=== PATIENT | female | born 2005 | race Caucasian/White ===

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

== ENCOUNTER 2023-02-23 07:39 | Emergency (ER) | payer OTHER, SELFPAY ==
[2023-02-23 07:59] VITALS: BP 110/70; PULSE 80; RESP 16; TEMP 36.7; O2SAT 98; BMI 38.0
--- NOTE | 2023-02-23 08:09 | CTR_ITS ---
PROCEDURE INFORMATION: Exam: CT Abdomen And Pelvis Without Contrast Exam date and time: 02/23/2023 10:25 AM Age: 17 years old Clinical indication: Abdominal pain; Flank; Left; Additional info: Left flank pain TECHNIQUE: Imaging protocol: Computed tomography of the abdomen and pelvis without contrast. Radiation optimization: All CT scans at this facility use at least one of these dose optimization techniques: automated exposure control; mA and/or kV adjustment per patient size (includes targeted exams where dose is matched to clinical indication); or iterative reconstruction. REPORTING DATA: Count of CT and Cardiac NM exams in prior 12 months: This patient has received 0 known CTs and 0 known cardiac nuclear medicine studies in the 12 months prior to the current study. COMPARISON: US pelvic complete* [id number] 12/13/2022 4:06 PM RADIATION DOSE METRICS: Total DLP (mGy-cm): 965.27 FINDINGS: Lungs: Lung bases are clear. Liver: The liver is normal. Gallbladder and bile ducts: The gallbladder is normal. There is no biliary dilation. Pancreas: The pancreas is unremarkable. Spleen: The spleen is unremarkable. Adrenal glands: The adrenal glands are unremarkable. Kidneys and ureters: Mild left hydronephrosis. Normal caliber left ureter. Mild left proximal periureteral fat stranding. There are no intrarenal stones on the left. There is a nonobstructive 2 mm stone in the right kidney. There is no hydronephrosis or ureteral dilation on the right. Stomach and bowel: The stomach is decompressed, preventing meaningful evaluation of wall thickness. The small bowel is nondilated. The colon is unremarkable. Appendix: The appendix is normal. Intraperitoneal space: There is no free air or significant intraperitoneal free fluid. Vasculature: The aorta is unremarkable. There is no aneurysm. Lymph nodes: There is no lymphadenopathy in the retroperitoneum, mesentery, pelvis or inguinal regions. Urinary bladder: 3 mm stone is visible in the bladder along the dependent wall near the left ureterovesical junction. The bladder is nondistended. The wall is thin. Reproductive: The uterus and left adnexa are unremarkable. There is a 5.6 x 5.3 cm simple right adnexal cyst. Bones/joints: Bones are unremarkable. Soft tissues: The abdominal wall is intact. CT/CT kidney stone [id number] IMPRESSION: 1. 3 mm stone in the urinary bladder near the left ureterovesical junction may be in the wall or lumen. There is mild left hydronephrosis and proximal periureteral fat stranding suggesting recent passage of the stone through the ureter. 2. 2 mm nonobstructive stone in the right kidney. 3. 5.6 cm simple right adnexal cyst. Findings correspond to a 4.4 cm cyst visible on ultrasound of 12/13/2022. Ultrasound follow-up in 6-12 months is recommended. (Reference: Jerome) REFERENCES: Jerome et al. Management of Incidental Adnexal Findings on CT and MRI: A White Paper of the ACR Incidental Findings Committee, J Am Joel Radiol. 2019;17(2):248-254.
--- NOTE | 2023-02-23 08:11 | ED_ITS ---
HPI - Back Pain/Injury 2 General: Chief Complaint: Back Pain/Injury Stated Complaint: N/V, Left side abd/back pain Time Seen by Provider: 02/23/23 07:43 Source: patient Mode of arrival: ambulatory Limitations: no limitations History of Present Illness: 17-year-old female states that she woke up this morning with a severe pain in her left flank radiated to her left abdomen states pain sharp in nature rates it a 7 out of 10 she had nausea and vomiting states she has had no fevers denies any dysuria she denies any worsening improving factors. Associated symptoms: Reports abdominal pain, nausea and vomiting; Deny chills, dysuria or fever(s) Review of Systems 2 Const: Denies: fever(s), chills, body aches or change in appetite ENMT: Denies: throat pain or dental pain Card: Denies: chest pain Resp: Denies: dyspnea GI: Reports: abdominal pain, nausea and vomiting; Denies: diarrhea : Reports: flank pain; Denies: dysuria Musc: Reports: back pain; Denies: neck pain Skin/Breast: Denies: rash Neuro: Denies: headache(s) PFSH ED 2 PFSH: Medical History No pertinent family history No pertinent past medical history Family History Grandmother Cancer pancreatic cancer Denies family history of Diabetes Hypertension Stroke Social History Smoking and tobacco/nicotine status: never used tobacco/nicotine Second hand smoke exposure: No Physical Exam 2 Const: COMMON NORMALS: no acute distress, patient oriented x3 and healthy appearing HENMT: COMMON NORMALS: normocephalic and atraumatic HEAD & SCALP: n ormocephalic and atraumatic Neck/C-Spine: COMMON NORMALS: full ROM and supple Chest: COMMONS NORMALS: normal inspection of the chest Resp: COMMON NORMALS: normal respiratory effort, No retractions, No use of accessory muscles and clear to auscultation bilaterally AUSCULTATION: clear to auscultation bilaterally Cardio: COMMON NORMALS: regular rate, regular rhythm and No murmurs present (Cardio) RATE: regular rate RHYTHM: regular rhythm GI: COMMON NORMALS: Normal to inspection, nondistended, normoactive bowel sounds present, Soft to palpation, non-tender and no masses PALPATION: Yes Soft to palpation Extremity: COMMON NORMALS: normal to inspection and full ROM Neuro: COMMON NORMALS: patient oriented x3, moves all extremities and no focal motor deficits Psych: COMMON NORMALS: mental status grossly normal, Normal thought process present and cooperative THOUGHT PROCESS: Normal thought process present Skin: COMMON NORMALS: no rashes or lesions noted and no wounds GENERAL SKIN EXAM: no rashes or lesions noted Course 2 Vital Signs: Vital signs: Vital Signs Temperature 98.1 F 02/23/23 07:59 Pulse Rate 80 02/23/23 07:59 Respiratory Rate 17 02/23/23 09:20 Blood Pressure 110/70 02/23/23 07:59 Pulse Oximetry 97 02/23/23 09:20 Oxygen Delivery Me thod Room Air 02/23/23 07:59 MDM - Back Pain/Injury Medical Decision Making Patient presents for left flank pain is likely from a kidney stone CT showed kidney stones passed in the bladder she has a slight infection as well we will start her on Keflex her pain is resolved here she is stable for discharge she is follow-up with PCP and return if worsening. Medical Records I reviewed the patient's medical records. Labs I reviewed the patient's lab results. 02/23/23 08:25 02/23/23 08:25 Radiology Impressions Abdomen/Pelvis CT 02/23/23 08:09 IMPRESSION: 1. 3 mm stone in the urinary bladder near the left ureterovesical junction may be in the wall or lumen. There is mild left hydronephrosis and proximal periureteral fat stranding suggesting recent passage of the stone through the ureter. 2. 2 mm nonobstructive stone in the right kidney. 3. 5.6 cm simple right adnexal cyst. Findings correspond to a 4.4 cm cyst visible on ultrasound of 12/13/2022. Ultrasound follow-up in 6-12 months is recommended. (Reference: Jerome) REFERENCES: Jerome et al. Management of Incidental Adnexal Findings on CT and MRI: A White Paper of the ACR Incidental Findings Committee, J Am Joel Radiol. 2019;17(2):248-254. Laboratory Results WBC 11.76 10^3/uL (4.5-13.0) 02/23/23 08:25 RBC 4.98 10^6/uL (3.85-5.65) 02/23/23 08:25 Hgb 14.10 g/dL (12.4-14.8) 02/23/23 08:25 Hct 43.9 % (36-47) 02/23/23 08:25 MCV 88.2 fl (85-98) 02/23/23 08:25 MCH 28.3 pg (27-33) 02/23/23 08:25 MCHC 32.1 g/dL (30-55) 02/23/23 08:25 RDW 13.3 % (12.1-15.1) 02/23/23 08:25 Plt Count 310 10^3/cmm (157-399) 02/23/23 08:25 MPV 11.0 fL (7.4-10.4) H 02/23/23 08:25 Neut % (Auto) 54.5 % 02/23/23 08:25 Lymph % (Auto) 30.9 % 02/23/23 08:25 Burke % (Auto) 6.3 % 02/23/23 08:25 Eos % (Auto) 7.0 % 02/23/23 08:25 Baso % (Auto) 1.0 % 02/23/23 08:25 Neut # (Auto) 6.41 10^3/uL (1.8-8.0) 02/23/23 08:25 Lymph # (Auto) 3.6 10^3/uL (1.5-6.5) 02/23/23 08:25 Burke # (Auto) 0.7 10^3/uL (0.2-0.9) 02/23/23 08:25 Eos # (Auto) 0.8 10^3/uL (0.0-0.8) 02/23/23 08:25 Baso # (Auto) 0.1 10^3/uL (0.0-0.1) 02/23/23 08:25 Nucleated RBC % (auto) 0 % 02/23/23 08:25 Nucleated RBCs # 0.0 /100WBC 02/23/23 08:25 Sodium 142 mmol/L (136-145) 02/23/23 08:25 Potassium 4.0 mmol/L (3.5-5.1) 02/23/23 08:25 Chloride 106 mmol/L (98-107) 02/23/23 08:25 Carbon Dioxide 24 mmol/L (22-29) 02/23/23 08:25 Anion Gap 16.0 (5-19) 02/23/23 08:25 BUN 11 mg/dL (6-20) 02/23/23 08:25 Creatinine 0.8 mg/dL (0.5-0.9) 02/23/23 08:25 GFR Calculation 92.4 mL/min (90-130) 02/23/23 08:25 Glucose 109 mg/dL (65-115) 02/23/23 08:25 Calculated Osmolality 294 mOsm/kg (285-295) 02/23/23 08:25 Calcium 9.9 mg/dL (8.5-10.5) 02/23/23 08:25 Total Bilirubin 0.2 mg/dL (0.15-1.2) 02/23/23 08:25 AST 17 U/L (0-32) 02/23/23 08:25 ALT 17 U/L (0-33) 02/23/23 08:25 Alkaline Phosphatase 115 U/L (35-105) H 02/23/23 08:25 Total Protein 7.5 g/dL (6.6-8.7) 02/23/23 08:25 Albumin 4.6 g/dL (3.5-5.2) 02/23/23 08:25 Globulin 2.9 g/dL (1.3-4.6) 02/23/23 08:25 Lipase 25 U/L (13-60) 02/23/23 08:25 HCG, Qual Negative (Negative) 02/23/23 08:25 Urine Color Dark yellow (Yellow) 02/23/23 09:54 Urine Appearance Cloudy (CLEAR) A 02/23/23 09:54 Urine pH 5 (5-7) 02/23/23 09:54 Ur Specific Randolph 1.030 (1.005-1.030) 02/23/23 09:54 Urine Protein 1+ (Negative) H 02/23/23 09:54 Urine Glucose (UA) Norm (Normal) 02/23/23 09:54 Urine Ketones Negative (Negative) 02/23/23 09:54 Urine Blood 3+ (Negative) H 02/23/23 09:54 Urine Nitrate Negative (Negative) 02/23/23 09:54 Urine Bilirubin 1+ (Negative) H 02/23/23 09:54 Urine Urobilinogen Norm mg/dL (Negative) 02/23/23 09:54 Ur Leukocyte Esterase 2+ (Negative) H 02/23/23 09:54 Urine RBC 25-40 /hpf (0-2) H 02/23/23 09:54 Urine WBC 10-15 /hpf (0-5) H 02/23/23 09:54 Ur Squamous Epith Cells 15-25 /hpf (0-5) H 02/23/23 09:54 Calcium Oxalate Crystal 0-4 /hpf H 02/23/23 09:54 Amorphous Sediment Not Reportable 02/23/23 09:54 Urine Bacteria 2+ /hpf (NONE) H 02/23/23 09:54 All radiology interpretation(s) finalized by discharge Discharge Plan Discharge Patient Disposition: Home Clinical Impression: Acute cystitis Qualifiers: Hematuria presence: without hematuria Qualified Code(s): N30.00 - Acute cystitis without hematuria Condition: Stable Prescriptions: New cephalexin 500 mg capsule 500 mg PO TID 7 Days Qty: 21 0RF ondansetron 4 mg tablet,disintegrating 4 mg PO Q6H PRN (Reason: nausea and vomiting) Qty: 14 0RF naproxen [Naprosyn] 500 mg tablet 500 mg PO BID PRN (Reason: pain) Qty: 20 0RF No Action propranolol 20 mg tablet See Rx Instructions .ROUTE .COMPLEX Rx Instructions: 40mg po qam and 20mg po bedtime lorazepam 0.5 mg tablet 0.5 mg PO DAILY PRN (Reason: Anxiety) ondansetron 4 mg tablet,disintegrating 4 mg PO TID PRN (Reason: Nausea And Vomiting) Aimovig Autoinjector 140 mg/mL auto-injector 140 mg SUBCUT Q30D levetiracetam 750 mg tablet 750 mg PO BID mirtazapine 30 mg Tablet 30 mg PO BEDTIME Discharge Orders: Discharge ED (Routine); Ordered 02/23/23 Ordered By: Stevo Monroy Referrals: Ajay Dickinson, [Primary Care Provider] - 1-3 days Discharge Diet: Advance as tolerated Discharge Activity: Resume usual activity Patient Instructions: Kidney Stones (ED) Coding Level of Care Code ED Dental Hygienist for Moshe Jesus
[2023-02-23] MEDS: ondansetron 2 mg/ML SDV 2 mL 4 MG IVP (08:31)
[2023-02-23] MEDS: sodium chloride 0.9% 1,000 ML 999 ML IV (08:31)
[2023-02-23 08:35] VITALS: RESP 20; O2SAT 98
[2023-02-23] MEDS: morphine 4 mg/mL SDV 1 mL IVP (08:35)
[2023-02-23 08:41] LABS: Basophils # 0.1 10^3/uL (0.0-0.1); Eosinophils # 0.8 10^3/uL (0.0-0.8); Hematocrit 43.9 % (36-47); Lymphocytes # 3.6 10^3/uL (1.5-6.5); Lymphocytes % 30.9 %; Mean Corpuscular HGB Conc 32.1 g/dL (30-55); Mean Corpuscular Hemoglobin 28.3 pg (27-33); Mean Corpuscular Volume 88.2 fl (85-98); Monocytes # 0.7 10^3/uL (0.2-0.9); Monocytes % 6.3 %; Neutrophils # 6.41 10^3/uL (1.8-8.0); Neutrophils % 54.5 %; Nucleated Red Blood Cells % 0 %; Platelet Count 310 10^3/cmm (157-399); Red Blood Count 4.98 10^6/uL (3.85-5.65); Red Cell Distribution Width 13.3 % (12.1-15.1); White Blood Count 11.76 10^3/uL (4.5-13.0)
[2023-02-23 09:20] VITALS: RESP 17; O2SAT 97
[2023-02-23] MEDS: HYDROmorphone 1 mg/mL INJ 1 mL IVP (09:20)
[2023-02-23 09:25] LABS: Alanine Aminotransferase 17 U/L (0-33); Albumin Level 4.6 g/dL (3.5-5.2); Alkaline Phosphatase 115 U/L (35-105); Aspartate Amino Transferase 17 U/L (0-32); Blood Urea Nitrogen 11 mg/dL (6-20); Calcium 9.9 mg/dL (8.5-10.5); Carbon Dioxide 24 mmol/L (22-29); Chloride 106 mmol/L (98-107); Creatinine Clr Calc Pharmacy 125.7927; Globulin 2.9 g/dL (1.3-4.6); Glomerular Filtration Rate 92.4 mL/min (90-130); Glucose 109 mg/dL (65-115); Lipase 25 U/L (13-60); Osmolality Calculated 294 mOsm/kg (285-295); Sodium 142 mmol/L (136-145); Total Bilirubin 0.2 mg/dL (0.15-1.2); Total Protein 7.5 g/dL (6.6-8.7)
[2023-02-23 10:23] LABS: HCG, Serum Qual Negative (Negative)
[2023-02-23 11:27] LABS: Add Urine Culture? No; Add Urine Microscopic? YES; Bacteria Urine 2+ /hpf; Bilirubin Urine 1+ (Negative); Blood Urine 3+ (Negative); Calcium Oxalate Crystals Urine 0-4 /hpf; Glucose Urine UA Norm (Normal); Ketones Urine Negative (Negative); Leukocyte Esterase Urine 2+ (Negative); Nitrate Urine Negative (Negative); Protein Urine 1+ (Negative); RBC Urine 25-40 /hpf (0-2); Squamous Epithelial Cell Urine 15-25 /hpf (0-5); Urine Appearance Cloudy (CLEAR); Urine Color Dark Yellow (Yellow); Urobilinogen Urine Norm (Negative); pH Urine 5 (5-7)
== END 2023-02-23 11:42 | disposition home or self-care (01) ==
PROVIDERS: Emergency Provider Emergency Medicine; PCP Electrodiagnostic Medicine
DX: N30.00 Acute cystitis without hematuria (principal); N13.2 Hydronephrosis with renal and ureteral calculous obstruction
CPT/HCPCS: 74176; 80053; 81001; 83690; 84703; 85025; 96361; 96374; 96375; 99285; J1170; J2270; J2405; J7030

== ENCOUNTER → 2023-10-30 11:04 | Outpatient (BNVA) | payer OTHER, SELFPAY | PROVIDERS: PCP Electrodiagnostic Medicine; Visit Provider Nurse Practitioner Women's Health | DX: N92.6 Irregular menstruation, unspecified (principal) | CPT/HCPCS: 82465; 83036; 83718; 83721; 84402; 84403; 84439; 84443; 84481 ==

== ENCOUNTER → 2023-12-30 12:17 | Outpatient (BNVA) | payer OTHER, SELFPAY | PROVIDERS: PCP Electrodiagnostic Medicine; Visit Provider Nurse Practitioner Women's Health | DX: N92.6 Irregular menstruation, unspecified (principal); N83.291 Other ovarian cyst, right side | CPT/HCPCS: 76830 ==

== ENCOUNTER 2024-01-11 23:07 | Emergency (ER) | payer OTHER, SELFPAY ==
[2024-01-11 23:11] VITALS: BP 157/73; PULSE 136; RESP 18; TEMP 37.2; O2SAT 97; BMI 40.7
[2024-01-11 23:14] VITALS: BP 125/76; PULSE 91; O2SAT 99
--- NOTE | 2024-01-11 23:51 | ED_ITS ---
HPI - Seizure 2 General: Chief Complaint: Seizure Stated Complaint: stated seizing since 920 pm Time Seen by Provider: 01/11/24 23:49 History of Present Illness: HPI Narrative: 18-year-old female with a history of pse udoseizure and migraine headache. She had a headache last evening, and began to have seizures. Her significant other in the room states that she has had seizure like activity on and off since around 9 PM. She has had multiple episodes. She is on Depakote, but has not taken her dose tonight. When trying to interview the patient, her eyes rolled back in her head, and she shakes she answers some questions by shaking her head yes and no. Seizure History: Yes (has prescription of Trazadone) Related Data Home Medications Medication Instructions Recorded Confirmed propranolol 20 mg tablet See Rx Instructions .Route .COMPLEX 05/24/22 12/19/23 lorazepam 0.5 mg tablet 0.5 mg PO DAILY PRN Anxiety 09/25/22 12/19/23 erenumab-aooe 140 mg/mL 140 mg SUBCUT Q30D 12/27/22 12/19/23 subcutaneous auto-injector (Aimovig Autoinjector) mirtazapine 30 mg tablet 30 mg PO BEDTIME 02/23/23 12/19/23 divalproex 500 mg tablet,extended 500 mg PO DAILY 10/30/23 12/19/23 release 24 hr (Depakote ER) hydrochlorothiazide 25 mg tablet 25 mg PO DAILY 10/30/23 12/19/23 ondansetron 4 mg disintegrating 8 mg PO Q6H PRN nausea and vomiting 10/30/23 12/19/23 tablet Previous Rx's Medication Instructions Recorded drospirenone 3 mg-ethinyl 1 tab PO DAILY #28 tabs 12/26/23 estradiol 0.02 mg tablet (WILEY (28)) Allergies Allergy/AdvReac Type Severity Reaction Status Date / Time amoxicillin Allergy hives Verified 12/19/23 09:47 ciprofloxacin Allergy RASH Verified 12/19/23 09:47 ketorolac [From Toradol] Allergy ALGY-Rash Verified 12/19/23 09:47 PFSH ED 2 PFSH: Medical History Hypertension No pertinent past medical history No pertinent family history Family History Grandmother Cancer pancreatic cancer Ovarian cancer Denies family history of Colon cancer Prostate cancer Diabetes Heart disease Hyperlipidemia Breast cancer Hypertension Uterine cancer Thyroid disease Stroke Social History Smoking and tobacco/nicotine status: current every day tobacco/nicotine user (vape use) Second hand smoke exposure: No Physical Exam 2 Const: COMMON NORMALS: alert GENERAL APPEARANCE: cooperative and anxious; not ill appearing ORIENTATION/CONSCIOUSNESS: Yes awake HENMT: COMMON NORMALS: normocephalic HEAD & SCALP: normocephalic FACE & SINUS: normal facial exam Eye: COMMON NORMALS: Equal, round and reactive pupils present and EOMs intact bilaterally PUPIL: Yes Equal, round and reactive pupils present Chest: CHEST: Yes Symmetrical chest wall rise Resp: COMMON NORMALS: normal respiratory effort, No use of accessory muscles and clear to auscultation bilaterally AUSCULTATION: clear to auscultation bilaterally Cardio: COMMON NORMALS: regular rate and regular rhythm RATE: regular rate RHYTHM: regular rhythm Neuro: SENSORIUM/ORIENTATION: Yes alert Course 2 Vital Signs: Vital signs: Vital Signs Temperature 98.9 F 01/11/24 23:11 Pulse Rate 106 H 01/12/24 02:17 Respiratory Rate 16 01/12/24 01:30 CS T Blood Pressure 114/79 01/12/24 02:17 Pulse Oximetry 99 01/12/24 02:17 Oxygen Delivery Me thod Room Air 01/12/24 01:30 CS T MDM - Seizure MDM Narrative Medical decision making narrative: The patient was given Ativan, as well as IV haloperidol and IV Depacon for her migraine with pseudoseizure. Seizures completely abated, and the patient rested comfortably, at least until she was awoken and informed that she would be discharged. She then started to shiver again. Her white blood cell count is 15. Her other laboratory is completely normal including CK level, phosphorus and magnesium. Her ethanol level is less than 10. She has walked to the emergency department, she will be allowed discharge. Lab Data 01/12/24 00:30 01/12/24 00:30 Labs: Laboratory Results WBC 14.83 10^3/uL (4.5-13.0) H 01/12/24 00:30 RBC 4.67 10^6/uL (3.85-5.65) 01/12/24 00:30 Hgb 13.70 g/dL (12.4-14.8) 01/12/24 00:30 Hct 41.8 % (36-47) 01/12/24 00:30 MCV 89.5 fl (85-98) 01/12/24 00:30 MCH 29.3 pg (27-33) 01/12/24 00:30 MCHC 32.8 g/dL (30-55) 01/12/24 00:30 RDW 12.8 % (12.1-15.1) 01/12/24 00:30 Plt Count 292 10^3/cmm (157-399) 01/12/24 00:30 MPV 11.0 fL (7.4-10.4) H 01/12/24 00:30 Neut % (Auto) 40.1 % 01/12/24 00:30 Lymph % (Auto) 47.9 % 01/12/24 00:30 Shelby % (Auto) 7.0 % 01/12/24 00:30 Eos % (Auto) 3.4 % 01/12/24 00:30 Baso % (Auto) 0.7 % 01/12/24 00:30 Neut # (Auto) 5.93 10^3/uL (1.8-8.0) 01/12/24 00:30 Lymph # (Auto) 7.1 10^3/uL (1.5-6.5) H 01/12/24 00:30 Shelby # (Auto) 1.0 10^3/uL (0.2-0.9) H 01/12/24 00:30 Eos # (Auto) 0.5 10^3/uL (0.0-0.8) 01/12/24 00:30 Baso # (Auto) 0.1 10^3/uL (0.0-0.1) 01/12/24 00:30 Nucleated RBC % (auto) 0 % 01/12/24 00:30 Nucleated RBCs # 0.0 /100WBC 01/12/24 00:30 Sodium 141 mmol/L (136-145) 01/12/24 00:30 Potassium 4.0 mmol/L (3.5-5.1) 01/12/24 00:30 Chloride 104 mmol/L (98-107) 01/12/24 00:30 Carbon Dioxide 24 mmol/L (22-29) 01/12/24 00:30 Anion Gap 17.0 (5-19) 01/12/24 00:30 BUN 11 mg/dL (6-20) 01/12/24 00:30 Creatinine 0.8 mg/dL (0.5-0.9) 01/12/24 00:30 GFR Calculation 91.4 mL/min (90-130) 01/12/24 00:30 Glucose 115 mg/dL (65-115) 01/12/24 00:30 Calculated Osmolality 292 mOsm/kg (285-295) 01/12/24 00:30 Calcium 9.2 mg/dL (8.5-10.5) 01/12/24 00:30 Phosphorus 3.3 mg/dL (2.5-4.5) 01/12/24 00:30 Magnesium 2.0 mg/dL (1.7-2.3) 01/12/24 00:30 Total Bilirubin 0.2 mg/dL (0.15-1.2) 01/12/24 00:30 AST 14 U/L (0-32) 01/12/24 00:30 ALT 16 U/L (0-33) 01/12/24 00:30 Alkaline Phosphatase 110 U/L (35-105) H 01/12/24 00:30 Creatine Kinase 85 U/L (26-192) 01/12/24 00:30 Total Protein 6.9 g/dL (6.6-8.7) 01/12/24 00:30 Albumin 4.2 g/dL (3.5-5.2) 01/12/24 00:30 Globulin 2.7 g/dL (1.3-4.6) 01/12/24 00:30 HCG, Qual Negative (Negative) 01/12/24 00:30 Ethyl Alcohol < 10 mg/dL (0-10) 01/12/24 00:30 No radiology studies performed this visit Discharge Plan Discharge Patient Disposition: Home Clinical Impression: Functional neurological symptom disorder with attacks or seizures Condition: Stable Prescriptions: No Action propranolol 20 mg tablet See Rx Instructions .ROUTE .COMPLEX Rx Instructions: 40mg po qam and 20mg po bedtime lorazepam 0.5 mg tablet 0.5 mg PO DAILY PRN (Reason: Anxiety) ondansetron 4 mg tablet,disintegrating 8 mg PO Q6H PRN (Reason: nausea and vomiting) divalproex [Depakote ER] 500 mg tablet extended release 24 hr 500 mg PO DAILY hydrochlorothiazide 25 mg tablet 25 mg PO DAILY drospirenone-ethinyl estradiol [WILEY (28)] 3-0.02 mg tablet 1 tab PO DAILY Qty: 28 3RF Aimovig Autoinjector 140 mg/mL auto-injector 140 mg SUBCUT Q30D mirtazapine 30 mg Tablet 30 mg PO BEDTIME Discharge Orders: Discharge ED (Routine); Ordered 01/12/24 Ordered By: Jaxon Corley Referrals: Ajay Dickinson DO [Primary Care Provider] - 1-3 days Patient Instructions: Migraine Headache (ED), Nonepileptic Seizures (ED), Opioid Safety, Pain Management Coding Level of Care Code ED Magnetic Grinder Operator for Moshe Jesus
[2024-01-12 00:14] VITALS: PULSE 95; O2SAT 97
[2024-01-12 00:49] LABS: Basophils # 0.1 10^3/uL (0.0-0.1); Basophils % 0.7 %; Eosinophils # 0.5 10^3/uL (0.0-0.8); Eosinophils % 3.4 %; Hematocrit 41.8 % (36-47); Lymphocytes # 7.1 10^3/uL (1.5-6.5); Lymphocytes % 47.9 %; Mean Corpuscular HGB Conc 32.8 g/dL (30-55); Mean Corpuscular Hemoglobin 29.3 pg (27-33); Mean Corpuscular Volume 89.5 fl (85-98); Neutrophils # 5.93 10^3/uL (1.8-8.0); Neutrophils % 40.1 %; Nucleated Red Blood Cells % 0 %; Platelet Count 292 10^3/cmm (157-399); Red Blood Count 4.67 10^6/uL (3.85-5.65); Red Cell Distribution Width 12.8 % (12.1-15.1); White Blood Count 14.83 10^3/uL (4.5-13.0)
[2024-01-12] MEDS: valproic acid inj 500 MG in sodium chloride 0.9% 50 ML 55 MG IV (01:00)
[2024-01-12 01:05] LABS: HCG, Serum Qual Negative (Negative)
[2024-01-12] MEDS: LORazepam 2 mg/mL INJ 1 mL IVP (01:05)
[2024-01-12] MEDS: haloperidol inj 5 mg/mL INJ 1 mL 3 MG IVP (01:05)
[2024-01-12] MEDS: sodium chloride 0.9% 500 ML IV (01:06)
[2024-01-12 01:10] LABS: Alanine Aminotransferase 16 U/L (0-33); Albumin Level 4.2 g/dL (3.5-5.2); Alkaline Phosphatase 110 U/L (35-105); Aspartate Amino Transferase 14 U/L (0-32); Blood Urea Nitrogen 11 mg/dL (6-20); Calcium 9.2 mg/dL (8.5-10.5); Carbon Dioxide 24 mmol/L (22-29); Chloride 104 mmol/L (98-107); Creatine Phosphokinase 85 U/L (26-192); Creatinine Clr Calc Pharmacy 129.5726; Globulin 2.7 g/dL (1.3-4.6); Glomerular Filtration Rate 91.4 mL/min (90-130); Glucose 115 mg/dL (65-115); Osmolality Calculated 292 mOsm/kg (285-295); Phosphorus 3.3 mg/dL (2.5-4.5); Sodium 141 mmol/L (136-145); Total Bilirubin 0.2 mg/dL (0.15-1.2); Total Protein 6.9 g/dL (6.6-8.7)
[2024-01-12 01:12] LABS: Alcohol Level < 10 mg/dL (0-10)
[2024-01-12 01:14] VITALS: BP 145/71; PULSE 79; PULSE 86; O2SAT 94; O2SAT 98
[2024-01-12 01:30] VITALS: PULSE 88; RESP 16; O2SAT 96
[2024-01-12 02:17] VITALS: BP 114/79; PULSE 106; O2SAT 99
== END 2024-01-12 02:19 | disposition home or self-care (01) ==
PROVIDERS: Emergency Provider Emergency Medicine; PCP Electrodiagnostic Medicine
DX: R29.818 Other symptoms and signs involving the nervous system (principal); F17.290 Nicotine dependence, other tobacco product, uncomplicated; I10 Essential (primary) hypertension
CPT/HCPCS: 80053; 80307; 82550; 83735; 84100; 84703; 85025; 96374; 96375; 99284; J1630; J2060; J3490; J7040

== ENCOUNTER → 2024-02-11 07:52 | Outpatient (BNVA) | payer OTHER, SELFPAY | PROVIDERS: PCP Electrodiagnostic Medicine; Visit Provider Obstetrics & Gynecology | DX: N83.291 Other ovarian cyst, right side (principal) | CPT/HCPCS: 76830 ==

== ENCOUNTER 2024-02-19 06:28 | Emergency (ER) | payer OTHER, SELFPAY ==
[2024-02-19 06:34] VITALS: BP 155/95; PULSE 92; RESP 18; TEMP 36.6; O2SAT 97; BMI 41.6
[2024-02-19 06:51] VITALS: BP 155/95; PULSE 93; O2SAT 97
[2024-02-19 06:57] LABS: Basophils # 0.1 10^3/uL (0.0-0.1); Basophils % 0.8 %; Eosinophils # 0.5 10^3/uL (0.0-0.8); Eosinophils % 4.3 %; Hematocrit 44.1 % (36-47); Lymphocytes # 4.2 10^3/uL (1.5-6.5); Lymphocytes % 35.2 %; Mean Corpuscular HGB Conc 32.7 g/dL (30-55); Mean Corpuscular Hemoglobin 29.3 pg (27-33); Mean Corpuscular Volume 89.8 fl (85-98); Mean Platelet Volume 11.2 fL (7.4-10.4); Monocytes # 0.8 10^3/uL (0.2-0.9); Monocytes % 6.5 %; Neutrophils # 6.26 10^3/uL (1.8-8.0); Neutrophils % 52.8 %; Nucleated Red Blood Cells % 0 %; Platelet Count 312 10^3/cmm (157-399); Red Blood Count 4.91 10^6/uL (3.85-5.65); Red Cell Distribution Width 13.5 % (12.1-15.1); White Blood Count 11.86 10^3/uL (4.5-13.0)
--- NOTE | 2024-02-19 07:00 | ED_ITS ---
HPI - Abdominal Pain 2 General: Chief Complaint: Abdominal Pain Stated Complaint: cyst on right ovary Time Seen by Provider: 02/19/24 06:29 History of Present Illness: 18-year-old female presents emergency ro om complaining of right sided pelvic pain. Patient has had an ovarian cyst has been being monitored several CTs and ultrasounds on the chart. Initially it look like this cyst on the right ovary was around 4.4 cm is now up to 7.5. There was good blood flow on the last ultrasound which was done on February 11, 2024. There is a pelvic ultrasound from December 13, 2022, CT of the abdomen 02/23/2023 and 3 ultrasounds done this year in the last 5 months. Cyst has shown progressive enlargement since then. [facility] Last visit was on December [address] Albino. Oliver that is high close for a follow-up ultrasound which was the one done recently and review his to whether or not they would proceed with surgical intervention. This morning patient reports increased pain in the right pelvic area. No dysuria urgency or frequency no fever sweats chills no diarrhea Associated Symptoms: Denies chills, dysuria, fever(s) and hematuria Related Data Date of Last Menstrual Period: 01/26/24 Home Medications Medication Instructions Recorded Confirmed lorazepam 0.5 mg tablet 0.5 mg PO DAILY PRN Anxiety 09/25/22 02/20/24 erenumab-aooe 140 mg/mL 140 mg SUBCUT Q30D 12/27/22 02/20/24 subcutaneous auto-injector (Aimovig Autoinjector) divalproex 500 mg tablet,extended 500 mg PO DAILY 10/30/23 02/20/24 release 24 hr (Depakote ER) ondansetron 4 mg disintegrating 8 mg PO Q6H PRN nausea and vomiting 10/30/23 02/20/24 tablet bupropion HCl 150 mg tablet,12 hr 150 mg PO DAILY 01/24/24 02/20/24 sustained-release (Wellbutrin SR) Previous Rx's Medication Instructions Recorded drospirenone 3 mg-ethinyl 1 tab PO DAILY #28 tabs 01/22/24 estradiol 0.02 mg tablet (WILEY (28)) hydrocodone 5 mg-acetaminophen 325 1 tab PO Q6H PRN pain #15 tabs 02/19/24 mg tablet Allergies Allergy/AdvReac Type Severity Reaction Status Date / Time amoxicillin Allergy hives Verified 02/20/24 12:12 ciprofloxacin Allergy RASH Verified 02/20/24 12:12 ketorolac [From Toradol] Allergy ALGY-Rash Verified 02/20/24 12:12 Review of Systems 2 Const: Denies: fever(s) or chills Card: Denies: chest pain Resp: Denies: dyspnea GI: Reports: abdominal pain : Reports: pelvic pain (Right); Denies: flank pain, dysuria, urinary frequency, urinary urgency, hematuria or vaginal bleeding Musc: Denies: neck pain or back pain Skin/Breast: Denies: rash PFSH ED 2 PFSH: Medical History Anxiety and depression Right ovarian cyst Insulin resistance PCOS (polycystic ovarian syndrome) Functional neurological symptom disorder with attacks or seizures Hypertension Surgical History History of tonsillectomy Family History Grandmother Cancer pancreatic cancer Ovarian cancer Denies family history of Colon cancer Prostate cancer Diabetes Heart disease Hyperlipidemia Breast cancer Hypertension Uterine cancer Thyroid disease Stroke Social History Smoking and tobacco/nicotine status: current every day tobacco/nicotine user (vape use) Second hand smoke exposure: No Female Reproductive History: Date of last menstrual period: 01/26/24 Physical Exam 2 Const: GENERAL APPEARANCE: cooperative ORIENTATION/CONSCIOUSNESS: Yes awake, Yes oriented to person, Yes oriented to place and Yes oriented to time HENMT: COMMON NORMALS: normocephalic, atraumatic and hearing grossly normal bilaterally HEAD & SCALP: normocephalic and atraumatic Resp: COMMON NORMALS: normal respiratory effort, No retractions, No use of accessory muscles and clear to auscultation bilaterally AUSCULTATION: clear to auscultation bilaterally Cardio: COMMON NORMALS: regular rate, regular rhythm and No murmurs present (Cardio) RATE: regular rate RHYTHM: regular rhythm GI: COMMON NORMALS: Soft to palpation and No hepatosplenomegaly present A USCULTATION: Yes normoactive bowel sounds PALPATION: Yes Soft to palpation, No Tenderness to palpation present (GI), No Guarding due to palpation present (GI) and Yes No hepatosplenomegaly present Extremity: COMMON NORMALS: normal to inspection, capillary refill normal, no clubbing, cyanosis or edema, no calf tenderness and no pedal edema Neuro: SENSORIUM/ORIENTATION: Yes oriented to person, Yes oriented to place and Yes oriented to time Skin: COMMON NORMALS: no rashes or lesions noted GENERAL SKIN EXAM: no rashes or lesions noted Course 2 Vital Signs: Vital signs: Vital Signs Temperature 97.9 F 02/19/24 06:34 Pulse Rate 82 02/19/24 08:54 Respiratory Rate 17 02/19/24 07:13 Blood Pressure 131/79 02/19/24 08:54 Pulse Oximetry 97 02/19/24 08:54 Oxygen Delivery Me thod Room Air 02/19/24 06:34 MDM - Abdominal Pain Medical Decision Making CT shows signs of a ruptured ovarian cyst large cystic adnexal mass on the right. This has been followed with gynecology recommend she follow-up with them. Previous notes reviewed recommend she contact Dr. Ortega to further discuss treatment options. Return if she has further problems. Lab Data 02/19/24 06:40 02/19/24 06:40 Labs/Radiology: Radiology Impressions Transvaginal US 02/19/24 07:17 IMPRESSION: 1. New free fluid with low-level echoes in the cul-de-sac, more than physiologic. Probably representing a ruptured ovarian cyst with blood products. 2. Large RIGHT adnexal cystic mass measuring 5.9 x 5.9 x 6.7 cm. This mass has been described recently and on prior studies dating back to 02/23/2023 without significant increase in size. There may be slight change in position of this mass as it was more towards the cul-de-sac on the prior CT. The adjacent RIGHT ovary does have normal vascularity. Due to the size this may cause portion of the ovary. This cystic mass is most closely associated with the RIGHT ovary. Consider cystadenoma as a possible etiology due to its long-term presence. 3. Normal endometrium. Laboratory Results WBC 11.86 10^3/uL (4.5-13.0) 02/19/24 06:40 RBC 4.91 10^6/uL (3.85-5.65) 02/19/24 06:40 Hgb 14.40 g/dL (12.4-14.8) 02/19/24 06:40 Hct 44.1 % (36-47) 02/19/24 06:40 MCV 89.8 fl (85-98) 02/19/24 06:40 MCH 29.3 pg (27-33) 02/19/24 06:40 MCHC 32.7 g/dL (30-55) 02/19/24 06:40 RDW 13.5 % (12.1-15.1) 02/19/24 06:40 Plt Count 312 10^3/cmm (157-399) 02/19/24 06:40 MPV 11.2 fL (7.4-10.4) H 02/19/24 06:40 Neut % (Auto) 52.8 % 02/19/24 06:40 Lymph % (Auto) 35.2 % 02/19/24 06:40 Ware % (Auto) 6.5 % 02/19/24 06:40 Eos % (Auto) 4.3 % 02/19/24 06:40 Baso % (Auto) 0.8 % 02/19/24 06:40 Neut # (Auto) 6.26 10^3/uL (1.8-8.0) 02/19/24 06:40 Lymph # (Auto) 4.2 10^3/uL (1.5-6.5) 02/19/24 06:40 Ware # (Auto) 0.8 10^3/uL (0.2-0.9) 02/19/24 06:40 Eos # (Auto) 0.5 10^3/uL (0.0-0.8) 02/19/24 06:40 Baso # (Auto) 0.1 10^3/uL (0.0-0.1) 02/19/24 06:40 Nucleated RBC % (auto) 0 % 02/19/24 06:40 Nucleated RBCs # 0.0 /100WBC 02/19/24 06:40 Sodium 137 mmol/L (136-145) 02/19/24 06:40 Potassium 4.3 mmol/L (3.5-5.1) 02/19/24 06:40 Chloride 104 mmol/L (98-107) 02/19/24 06:40 Carbon Dioxide 21 mmol/L (22-29) L 02/19/24 06:40 Anion Gap 16.3 (5-19) 02/19/24 06:40 BUN 9 mg/dL (6-20) 02/19/24 06:40 Creatinine 0.7 mg/dL (0.5-0.9) 02/19/24 06:40 GFR Calculation 106.7 mL/min (90-130) 02/19/24 06:40 Glucose 114 mg/dL (65-115) 02/19/24 06:40 Calculated Osmolality 284 mOsm/kg (285-295) L 02/19/24 06:40 Calcium 9.8 mg/dL (8.5-10.5) 02/19/24 06:40 Total Bilirubin 0.4 mg/dL (0.15-1.2) 02/19/24 06:40 AST 15 U/L (0-32) 02/19/24 06:40 ALT 14 U/L (0-33) 02/19/24 06:40 Alkaline Phosphatase 84 U/L (35-105) 02/19/24 06:40 Total Protein 7.0 g/dL (6.6-8.7) 02/19/24 06:40 Albumin 4.0 g/dL (3.5-5.2) 02/19/24 06:40 Globulin 3.0 g/dL (1.3-4.6) 02/19/24 06:40 HCG, Qual Negative (Negative) 02/19/24 06:40 Urine Color Yellow (Yellow) 02/19/24 07:04 Urine Appearance Clear (CLEAR) 02/19/24 07:04 Urine pH 5.5 (5-7) 02/19/24 07:04 Ur Specific [place] 1.016 (1.005-1.030) 02/19/24 07:04 Urine Protein Negative (Negative) 02/19/24 07:04 Urine Glucose (UA) Negative (Normal) 02/19/24 07:04 Urine Ketones Negative (Negative) 02/19/24 07:04 Urine Blood Negative (Negative) 02/19/24 07:04 Urine Nitrate Negative (Negative) 02/19/24 07:04 Urine Bilirubin Negative (Negative) 02/19/24 07:04 Urine Urobilinogen 0.2 mg/dL (Negative) 02/19/24 07:04 Ur Leukocyte Esterase Negative (Negative) 02/19/24 07:04 Urine RBC 0-2 /hpf (0-2) 02/19/24 07:04 Urine WBC 0-5 /hpf (0-5) 02/19/24 07:04 Ur Squamous Epith Cells 0-5 /hpf (0-5) 02/19/24 07:04 Amorphous Sediment Not Reportable 02/19/24 07:04 Urine Bacteria 1+ /hpf (NONE) H 02/19/24 07:04 Hyaline Casts 0-4 /lpf H 02/19/24 07:04 All radiology interpretation(s) finalized by discharge Discharge Plan Discharge Patient Disposition: Home Clinical Impression: Rupture of cyst of right ovary Condition: Stable Prescriptions: New hydrocodone-acetaminophen 5-325 mg tablet 1 tab PO Q6H PRN (Reason: pain) Qty: 15 0RF No Action lorazepam 0.5 mg tablet 0.5 mg PO DAILY PRN (Reason: Anxiety) ondansetron 4 mg tablet,disintegrating 8 mg PO Q6H PRN (Reason: nausea and vomiting) divalproex [Depakote ER] 500 mg tablet extended release 24 hr 500 mg PO DAILY bupropion HCl [Wellbutrin SR] 150 mg tablet sustained-release 12 hr 150 mg PO DAILY drospirenone-ethinyl estradiol [WILEY (28)] 3-0.02 mg tablet 1 tab PO DAILY Qty: 28 3RF Aimovig Autoinjector 140 mg/mL auto-injector 140 mg SUBCUT Q30D Discharge Orders: Discharge ED (Routine); Ordered 02/19/24 Ordered By: Junior Thorne Referrals: Ajay Dickinson DO [Primary Care Provider] - Discharge Diet: Usual diet Discharge Activity: Increase activity as tolerated Patient Instructions: Opioid Safety, Pain Management Activity Restrictions/Additional Instructions: Thank you for choosing [facility] for your healthcare needs today. It is very important that you follow up as instructed or that you return to the Emergency Department should you have concerns or if your condition changes or worsens in any way. You were seen today with complaint of pelvic pain. On ultrasound there is increased fluid likely fluid draining from the ovarian cyst your white count is normal and urine did not show any signs of infection. Recommend that you follow-up with your primary quality management coordinator as soon as you are able Coding Level of Care Code ED Team Leader Surgery for Moshe Jesus
[2024-02-19 07:04] LABS: HCG, Serum Qual Negative (Negative)
[2024-02-19 07:06] LABS: Alkaline Phosphatase 84 U/L (35-105); Anion Gap 16.3 (5-19); Aspartate Amino Transferase 15 U/L (0-32); Blood Urea Nitrogen 9 mg/dL (6-20); Calcium 9.8 mg/dL (8.5-10.5); Carbon Dioxide 21 mmol/L (22-29); Chloride 104 mmol/L (98-107); Glomerular Filtration Rate 106.7 mL/min (90-130); Glucose 114 mg/dL (65-115); Osmolality Calculated 284 mOsm/kg (285-295); Potassium 4.3 mmol/L (3.5-5.1); Sodium 137 mmol/L (136-145); Total Bilirubin 0.4 mg/dL (0.15-1.2)
[2024-02-19] MEDS: ondansetron 2 mg/ML SDV 2 mL 4 MG IVP (07:11)
[2024-02-19 07:13] VITALS: RESP 17; O2SAT 98
[2024-02-19] MEDS: morphine 4 mg/mL SDV 1 mL 2 MG IVP (07:13)
[2024-02-19 07:17] LABS: Alanine Aminotransferase 14 U/L (0-33)
--- NOTE | 2024-02-19 07:17 | US_ITS ---
WS: [id number] US transvaginal [id number] HISTORY: Right ovarian cyst COMPARISON: 02/11/2024, 12/30/2023, CT 02/23/2023 Uterus: 7.4 cm x 3.6 cm x 3.0 cm. Normal size anteverted uterus. No fibroid or mass. Endometrium: 0.5 cm. Normal. Right ovary: 3.2 cm x 3.4 cm x 2.7 cm. Visualized ovary is normal size. There is a central follicle. There is also a large inseparable cystic mass from the RIGHT ovary that extends posterior towards the cul-de-sac. This cyst has a few low-level echoes measuring 5.9 x 5.9 x 6.7 cm. There is through briceño smission. This cyst has been present on prior exams without significant increase in size. This may be a cystadenoma. Normal Doppler is present within the RIGHT ovary. There is good systolic and diastoli c flow. Left ovary: 3.1 cm x 3.1 cm x 2.9 cm. Collapsing corpus luteal cyst in the central ovary. Normal flow to the LEFT ovary. There is a small amount of free fluid adjacent to the LEFT ovary. Large amount of free fluid in the cul-de-sac was not present on the prior study suggesting a ruptured ovarian cyst most likely. There are a few low-level echoes. US/US transvaginal 84174 IMPRESSION: 1. New free fluid with low-level echoes in the cul-de-sac, more than physiolog ic. Probably representing a ruptured ovarian cyst with blood products. 2. Large RIGHT adnexal cystic mass measuring 5.9 x 5.9 x 6.7 cm. This mass has been described recently and on prior studies dating back to 02/23/2023 without significant increase in size. There may be slight change in position of this m ass as it was more towards the cul-de-sac on the prior CT. The adjacent RIGHT o vary does have normal vascularity. Due to the size this may cause portion of th e ovary. This cystic mass is most closely associated with the RIGHT ovary. Cons ider cystadenoma as a possible etiology due to its long-term presence. 3. Normal endometrium.
[2024-02-19 07:24] LABS: Bilirubin Urine Negative (Negative); Blood Urine Negative (Negative); Glucose Urine UA Negative (Normal); Ketones Urine Negative (Negative); Leukocyte Esterase Urine Negative (Negative); Nitrate Urine Negative (Negative); Protein Urine Negative (Negative); Specific Gravity, Urine 1.016 (1.005-1.030); Urine Appearance Clear (CLEAR); Urine Color Yellow (Yellow); Urobilinogen Urine 0.2 mg/dL (Negative); pH Urine 5.5 (5-7)
[2024-02-19 07:29] LABS: Add Urine Microscopic? YES; Bacteria Urine 1+ /hpf; Hyaline Casts Urine 0-4 /lpf; RBC Urine 0-2 /hpf (0-2); Squamous Epithelial Cell Urine 0-5 /hpf (0-5); WBC Urine 0-5 /hpf (0-5)
[2024-02-19 08:38] VITALS: BP 131/79; PULSE 82; O2SAT 97
[2024-02-19 08:54] VITALS: BP 131/79; PULSE 82; O2SAT 97
== END 2024-02-19 08:55 | disposition home or self-care (01) ==
PROVIDERS: Emergency Provider Family Medicine; PCP Electrodiagnostic Medicine
DX: N83.201 Unspecified ovarian cyst, right side (principal); F17.290 Nicotine dependence, other tobacco product, uncomplicated; I10 Essential (primary) hypertension
CPT/HCPCS: 76830; 80053; 81001; 84703; 85025; 96374; 96375; 99284; J2270; J2405

== ENCOUNTER → 2024-02-24 09:54 | Outpatient (BNVA) | payer OTHER, SELFPAY | PROVIDERS: PCP Electrodiagnostic Medicine; Visit Provider Obstetrics & Gynecology | DX: N83.12 Corpus luteum cyst of left ovary (principal); N83.201 Unspecified ovarian cyst, right side | CPT/HCPCS: 76830 ==

== ENCOUNTER → 2024-04-20 10:29 | Outpatient (BNVA) | payer OTHER, SELFPAY | PROVIDERS: PCP Electrodiagnostic Medicine; Visit Provider Obstetrics & Gynecology | DX: N83.201 Unspecified ovarian cyst, right side (principal); R93.89 Abnormal findings on diagnostic imaging of other specified body structures | CPT/HCPCS: 76830 ==

== ENCOUNTER 2024-04-27 17:20 | Observation (INO) | payer OTHER, SELFPAY ==
--- NOTE | 2024-04-20 10:22 | ANES.PREANE2 ---
Pre-Anesthetic Assessment Height/Weight: Height 5 ft 3 in Preop Diagnosis: ovarian cyst Operation Date: 04/27/24 12:10 Proposed Procedures p Laparoscopic Ovarian Cystectomy 27896, N83.201(Right) - Dada Ortega MD Was Beta Sandra taken within 24 hours: N/A Was Clonidine taken within 24 hours: N/A Social Tobacco and No alcohol Exam alert, oriented x 3, clear to auscultation bilaterally and regular rate & rhythm Airway Submandibular: within normal limits Cervical ROM: within normal limits Mallampati: Class III Dentition: full Comments: Comments: smaller mouth opening Anesthetic Plan ASA status: 2 Anesthesia: General Other: No prior issues with anesthesia Plan to be n.p.o. at midnight day prior to surgery Patient states she has prediabetes, not on any medications for this Patient also states that she has seizures but is not on any antiepileptic medications. States that she can see an aura prior to experiencing the seizure Labs 02/19/2024 reviewed and acceptable for procedure METs greater than 4 Plan for general anesthetic Medications/Allergies Home Medications ?Medication ?Instructions ?Recorded ?Confirmed ?Last Taken ?Type lorazepam 0.5 mg tablet 0.5 mg PO DAILY PRN Anxiety 09/25/22 04/20/24 Unknown History ondansetron 4 mg disintegrating 8 mg PO Q6H PRN nausea and vomiting 10/30/23 04/20/24 Unknown History tablet drospirenone 3 mg-ethinyl 1 tab PO DAILY #28 tabs 01/22/24 04/20/24 04/20/24 Rx estradiol 0.02 mg tablet (WILEY (28)) bupropion HCl 150 mg tablet,12 hr 150 mg PO DAILY 01/24/24 04/20/24 04/20/24 History sustained-release (Wellbutrin SR) hydrocodone 5 mg-acetaminophen 325 1 tab PO Q6H PRN pain #15 tabs 02/19/24 04/20/24 Unknown Rx mg tablet metformin 500 mg tablet,extended 1,000 mg (2 x 500 mg) PO BID #360 02/28/24 04/20/24 04/20/24 Rx release 24 hr tabs Allergies Allergy/AdvReac Type Severity Reaction Status Date / Time amoxicillin Allergy hives Verified 04/20/24 07:42 ciprofloxacin Allergy RASH Verified 04/20/24 07:42 ketorolac (From Toradol) Allergy ALGY-Rash Verified 04/20/24 07:42 [facility] Anesthesia Medical History Anxiety and depression Right ovarian cyst Insulin resistance PCOS (polycystic ovarian syndrome) Functional neurological symptom disorder with attacks or seizures Hypertension Surgical History History of tonsillectomy Family History Grandmother Cancer pancreatic cancer Ovarian cancer Denies family history of Colon cancer Prostate cancer Diabetes Heart disease Hyperlipidemia Breast cancer Hypertension Uterine cancer Thyroid disease Stroke Social History Smoking and tobacco/nicotine status: never used tobacco/nicotine Second hand smoke exposure: No Female Reproductive History Date of last menstrual period: 03/31/24 Data Anesthesia Cardiac Studies: No Data to Display
[2024-04-27] VITALS (22 sets, daily range): BP systolic 105–157; BP diastolic 68–107; PULSE 86–185; RESP 16–22; TEMP 36.1–36.9; O2SAT 82–97; BMI 39.8
[2024-04-27] MEDS: VANCOMYCIN ADD-Vantage 1,000 MG in 0.9% NaCl ADD-Vantage 250 ML 250 MG IV (11:00)
[2024-04-27 11:27] LABS: Bilirubin Urine Negative (Negative); Blood Urine Negative (Negative); Glucose Urine UA Negative (Normal); Ketones Urine Negative (Negative); Leukocyte Esterase Urine Negative (Negative); Nitrate Urine Negative (Negative); Protein Urine Negative (Negative); Specific Gravity, Urine 1.019 (1.005-1.030); Urine Appearance Turbid (CLEAR); Urine Color Yellow (Yellow); Urobilinogen Urine 0.2 mg/dL (Negative)
--- NOTE | 2024-04-27 11:31 | P.ANESUD_ITS ---
Pre-Anesthetic Update Pre-Anesthetic Assessment: Date of Surgery/Procedure: 04/27/24 Preop Marley gnosis: right ovarian cyst Proposed Procedure: Operation Date: 04/27/24 12:30 Proposed Procedures p Laparoscopic Ovarian Cystectomy 44055, N83.201(Right) - Dada Ortega MD Changes from Pre-Anesthetic Assessment: No changes since I saw her last week. NPO since yesterday evening. Plan for general anesthesia Last Intake: Intake Last Liquid Date 04/26/24 Last Liquid Time 21:00 Last Solid Date 04/26/24 Last Solid Time 21:00 Labs Last 48hrs: Urine 04/27/24 Range/Units 11:10 Urine Color Yellow (Yellow) Urine Appearance Turbid A (CLEAR) Urine pH 8.0 A (5-7) Ur Specific Gravit y 1.019 (1.005-1.030) Urine Protein Negative (Negative) Urine Glucose (UA) Negative (Normal) Urine Ketones Negative (Negative) Urine Nitrate Negative (Negative) Urine Bilirubin Negative (Negative) Ur Leukocyte Adelita ase Negative (Negative) Vitals: Temperature 97.0 F L 04/27/24 11:21 Temperature Source Temporal Artery S can 04/27/24 11:21 Pulse Rate 104 H 04/27/24 11:21 Respiratory Rate 18 04/27/24 11:21 Blood Pressure 137/107 04/27/24 11:21 Blood Pressure Rohini n 117 04/27/24 11:21 Pulse Oximetry 96 04/27/24 11:21 Oxygen Delivery Me thod Room Air 04/27/24 11:21 Cardiac Studies: No Data to Display
[2024-04-27 11:32] LABS: Add Urine Microscopic? YES; Bacteria Urine 2+ /hpf; Hyaline Casts Urine 1.65 /lpf; RBC Urine 0-2 /hpf (0-2)
[2024-04-27] MEDS: scopolamine 1 mg PATCH 1 PATCH TRANSDERMA (11:33)
[2024-04-27] MEDS: sodium chloride 0.9% 1,000 ML 30 ML IV (11:34)
[2024-04-27 11:36] LABS: Add Urine Culture? Yes
[2024-04-27 11:51] LABS: Basophils # 0.1 10^3/uL (0.0-0.1); Basophils % 0.6 %; Eosinophils # 0.3 10^3/uL (0.0-0.8); Eosinophils % 2.6 %; Hematocrit 42.2 % (36-47); Lymphocytes # 5.1 10^3/uL (1.5-6.5); Lymphocytes % 46.6 %; Mean Corpuscular HGB Conc 34.4 g/dL (30-55); Mean Corpuscular Hemoglobin 29.4 pg (27-33); Mean Corpuscular Volume 85.4 fl (85-98); Mean Platelet Volume 10.7 fL (7.4-10.4); Monocytes # 0.9 10^3/uL (0.2-0.9); Neutrophils % 41.6 %; Nucleated Red Blood Cells % 0 %; Platelet Count 355 10^3/cmm (157-399); Red Blood Count 4.94 10^6/uL (3.85-5.65); Red Cell Distribution Width 12.7 % (12.1-15.1); White Blood Count 10.84 10^3/uL (4.5-13.0)
[2024-04-27 12:04] LABS: Alanine Aminotransferase 13 U/L (0-33); Albumin Level 4.3 g/dL (3.5-5.2); Alkaline Phosphatase 76 U/L (35-105); Aspartate Amino Transferase 13 U/L (0-32); Blood Urea Nitrogen 7 mg/dL (6-20); Calcium 9.7 mg/dL (8.5-10.5); Carbon Dioxide 21 mmol/L (22-29); Chloride 101 mmol/L (98-107); Creatinine Clr Calc Pharmacy 127.9661; Globulin 2.9 g/dL (1.3-4.6); Glomerular Filtration Rate 91.4 mL/min (90-130); Glucose 100 mg/dL (65-115); Osmolality Calculated 284 mOsm/kg (285-295); Sodium 138 mmol/L (136-145); Total Bilirubin 0.3 mg/dL (0.15-1.2); Total Protein 7.2 g/dL (6.6-8.7)
--- NOTE | 2024-04-27 12:25 | W.PM.OPSUD ---
Surgery/Procedure H&P Update DATE OF PROCEDURE: April 27, 2024 DATE H&P PERFORMED: 04/20/24 H&P UPDATE INFORMATION: I have reviewed H&P completed within last 30 days, I have examined patient prior to procedure and No changes to prior documentation PREOP DIAGNOSIS: right ovarian cyst PLANNED PROCEDURE: Operation Date: 04/27/24 12:30 Proposed Procedures p Laparoscopic Ovarian Cystectomy 80222, N83.201(Right) - Dada Ortega MD
[2024-04-27] MEDS: diphenhydrAMINE 50 mg/mL SDV 1mL 12.5 MG IVP (12:30)
[2024-04-27] MEDS: famotidine 20 mg/2 mL INJ IVP (12:32)
[2024-04-27] MEDS: metroNIDAZOLE IV 500 MG/100 ML PREMIX 100 MG IV (12:58)
[2024-04-27] MEDS: BUPivacaine 0.5% INJ 10 mL INJECTION (13:06)
--- NOTE | 2024-04-27 13:36 | W.PM.BPON ---
Date of Procedure: 04/27/24 Surgeon: Dada Ortega MD Emblem Fuser Tender(s): Procedure(s) performed: Diagnostic laparoscopy Paratubal cyst drainage Findings of the procedure(s): Right paratubal cyst Estimated blood loss: 5 Specimen(s) removed: Cyst fluid Post-operative diagnosis: Right paratubal cyst
--- NOTE | 2024-04-27 13:38 | P.OP_ITS ---
Operative Report Date of procedure: April 27, 2024 Pre-op diagnosis: Right ovarian cyst Post-op diagnosis: Right paratubal cyst vs hydrosalpinx Mild endometriosis Post-op findings: Mild endometriosis Procedure done: Diagnostic laparoscopy Right paratubal cyst drainage Endometriosis lesion fulguration Specimens removed/disposition: Cyst fluid Surgeon: Dada Ortega MD Estimated blood loss (mL): 5 IV fluids (mL): 800 Urine output (mL): 50 Findings: After informed consent, the patient was taken to the operating room where general anesthesia was administered. The patient was examined under anesthesia and found to have a normal uterus with normal adnexa. She was placed in the dorsal lithotomy position and prepped and draped in sterile fashion. Pre- Procedure Time-Out verifying the correct patient identity, correct procedure verified with consent, correct site and side, correct patient position, availab ility of correct implants and any special equipment or requirements was performed and acknowledge by the OR team. A weighted speculum was placed in the vagina, and the anterior lip of cervix was grasped with the single toothed tenaculum. A uterine manipulator was advanced into the endocervical. Tenaculum was removed after uterine manipulator was secured. The speculum was removed from the vagina. An intraumbilical incision was made with a scalpel. While tenting up on the abdomen, a Verres needle with sleeve was admitted into the intra-abdominal cavity. A saline drop test was performed and noted to be within normal limits. Pneumoperitoneum was attained with 4 liters of carbon dioxide. The Verres needle was removed. A 5 mm trocar and sleeve were admitted into the abdomen and laparoscopic confirmation of location was achieved, A second incision was made 3 cm above the symphysis pubis, and a 5 mm trocar and sleeve were admitted into the abdomen under direct, laparoscopic visualization without complication. A survey revealed normal abdominal anatomy but pelvic survey shows normal uterus and left adnexa. The right adnexa shows normal ovary however the fallopian tube shows a paratubal cyst. A 5 mm blunt probe was advanced through the second trocar sleeve, and light manipulation of ovaries and uterus to assess the posterior aspects was performed showing mild endometriosis in the cul-de-sac. The paratubal cyst was drained and the fluid was send to pathology. The small endometriosis lesion in the cul-de-sac was fulgurated. carbon dioxide was allowed to escape from the abdomen. The instruments were removed, and skin close with 3-0 Vicryl subcuticularly and with a Dermabond. The instruments were removed from the vagina, and excellent hemostasis was noted. The patient tolerated the procedure well, and sponge, lap and needle count were correct times two. The patient taken to the recovery room in good condition.
[2024-04-27] MEDS: fentaNYL 50 mcg/mL INJ 2mL IVP (14:00)
[2024-04-27] MEDS: ondansetron 2 mg/ML SDV 2 mL 4 MG IVP (15:00)
--- NOTE | 2024-04-27 17:30 | ANE.PACU2 ---
Inpatient post-anesthesia follow up: Airway intact: Yes Vital signs: Temperature 98.0 F Pulse Rate 90 Respiratory Rate 17 Blood Pressure 111/71 Pulse Oximetry 97 Oxygen Delivery Me thod Room Air Oxygen Flow Rate 0.5 Fraction of Inspir ed Oxygen Hydration adequate: Yes Nausea and vomiting: No Pain level: 2 Mental status: Baseline Additional Comments: Patient was requiring nasal cannula oxygen to maintain SpO2 greater than 90. Decision was made to admit patient for observation
--- NOTE | 2024-04-27 17:33 | PC.NURSE ---
Notified Dr. Marion of patients oxygen levels running mid 80's on RA, pt pulse running 110-140's, pt acute cough, given cepacol cough drop and ice chips, unable to titrate pt off oxygen, orders to give pt breathing treatment. Pt then with x1 episodes of vomiting blood, Dr. Marion notified and at bedside with pt and family.
[2024-04-27] MEDS: ipratropium-albuterol 3 mL Neb (17:39)
--- NOTE | 2024-04-27 17:41 | PC.NURSE ---
Received report from Dr. Warner and assumed care of pt at 1510. Pt's mother and significant other at bedside. Dr. Warner had administered breathing tx and requested pt be monitored on room air. See vitals documented. Walked pt to use bathroom, upon return at 1620 O2 sat was 82%, started pt on 2 liters O2 per nasal canula and informed Dr. Warner of vitals, he called Dr. Ortega and they agreed to admit pt. for observation.
[2024-04-27] MEDS: ibuprofen 800 mg tablet PO (19:25)
[2024-04-28] VITALS (8 sets, daily range): BP systolic 110–112; BP diastolic 69–72; PULSE 69–109; RESP 17–20; TEMP 36.6–36.7; O2SAT 94–97
[2024-04-28] MEDS: simethicone 80 mg Chew PO (05:32)
[2024-04-28] MEDS: ibuprofen 800 mg tablet PO (09:37)
--- NOTE | 2024-04-28 11:32 | PM.OBGYDC ---
Discharge Providers BISQUE TILE BURNER Date of Admission: 04/27/24 17:20 Date of Discharge: 04/28/24 Attending Provider at Admission: Dada Ortega MD Attending Provider at Discharge: Dada Ortega MD Primary Care Provider: Ajay Dickinson DO Reason for Visit Reason for Visit: UTD 04/20 Hospital Course Hospital Course Ms. Magallanes G0, status post laparoscopic right paratubal cyst removal. The procedure proceeded without any complication however. Postop O2 saturation was suboptimal and she was kept over observation overnight. This morning pulse ox within normal limits. Patient was counseled regarding pelvic rest for 6 weeks (no sex, no tampons, no vaginal douches). Return to the emergency room if any fever, increased bleeding or pain. Physical Exam Narrative: GA: Alert and oriented ?3. HEENT: WNL. Heart: Regular rate and rhythm. Lungs: Clear to auscultation bilaterally. Abdomen: Bowel sounds present, nontender, minimal tenderness, incision clean and dry, no redness, pain or edema. FINANCIAL ASSISTANCE SPECIALIST: spotting bleeding. Extremities: No edema, no cyanosis, no calves pain. Urinary Catheter Management: Macdonald Latex: Cath Placed During This Visit: yes Urinary Catheter Date of Insertion: 04/27/24 Urinary Catheter Time of Insertion: 13:06 History History History 0 Term Miscarriages/Ectopic Living Children Discharge Data Studies Completed and Pending Pending at discharge Category Date Time Status Cyto Order Verification Routine Lab 04/27/24 13:26 Ordered OR HCG Qualitative Urine Routine Lab 04/27/24 11:00 Ordered Retype for Patiets ABO/Rh Routine Lab 04/27/24 12:24 Ordered Urine Culture Routine Lab 04/27/24 11:10 Results Cytology [PTH] Routine Pth 04/27/24 13:20 Received Laboratory Results WBC 10.84 10^3/uL (4.5-13.0) 04/27/24 11:20 RBC 4.94 10^6/uL (3.85-5.65) 04/27/24 11:20 Hgb 14.50 g/dL (12.4-14.8) 04/27/24 11:20 Hct 42.2 % (36-47) 04/27/24 11:20 MCV 85.4 fl (85-98) 04/27/24 11:20 MCH 29.4 pg (27-33) 04/27/24 11:20 MCHC 34.4 g/dL (30-55) 04/27/24 11:20 RDW 12.7 % (12.1-15.1) 04/27/24 11:20 Plt Count 355 10^3/cmm (157-399) 04/27/24 11:20 MPV 10.7 fL (7.4-10.4) H 04/27/24 11:20 Neut % (Auto) 41.6 % 04/27/24 11:20 Lymph % (Auto) 46.6 % 04/27/24 11:20 [place] % (Auto) 8.0 % 04/27/24 11:20 Eos % (Auto) 2.6 % 04/27/24 11:20 Baso % (Auto) 0.6 % 04/27/24 11:20 Neut # (Auto) 4.50 10^3/uL (1.8-8.0) 04/27/24 11:20 Lymph # (Auto) 5.1 10^3/uL (1.5-6.5) 04/27/24 11:20 [place] # (Auto) 0.9 10^3/uL (0.2-0.9) 04/27/24 11:20 Eos # (Auto) 0.3 10^3/uL (0.0-0.8) 04/27/24 11:20 Baso # (Auto) 0.1 10^3/uL (0.0-0.1) 04/27/24 11:20 Nucleated RBC % (auto) 0 % 04/27/24 11:20 Nucleated RBCs # 0.0 /100WBC 04/27/24 11:20 Sodium 138 mmol/L (136-145) 04/27/24 11:20 Potassium 4.0 mmol/L (3.5-5.1) 04/27/24 11:20 Chloride 101 mmol/L (98-107) 04/27/24 11:20 Carbon Dioxide 21 mmol/L (22-29) L 04/27/24 11:20 Anion Gap 20.0 (5-19) H 04/27/24 11:20 BUN 7 mg/dL (6-20) 04/27/24 11:20 Creatinine 0.8 mg/dL (0.5-0.9) 04/27/24 11:20 GFR Calculation 91.4 mL/min (90-130) 04/27/24 11:20 Glucose 100 mg/dL (65-115) 04/27/24 11:20 Calculated Osmolality 284 mOsm/kg (285-295) L 04/27/24 11:20 Calcium 9.7 mg/dL (8.5-10.5) 04/27/24 11:20 Total Bilirubin 0.3 mg/dL (0.15-1.2) 04/27/24 11:20 AST 13 U/L (0-32) 04/27/24 11:20 ALT 13 U/L (0-33) 04/27/24 11:20 Alkaline Phosphatase 76 U/L (35-105) 04/27/24 11:20 Total Protein 7.2 g/dL (6.6-8.7) 04/27/24 11:20 Albumin 4.3 g/dL (3.5-5.2) 04/27/24 11:20 Globulin 2.9 g/dL (1.3-4.6) 04/27/24 11:20 Urine Color Yellow (Yellow) 04/27/24 11:10 Urine Appearance Turbid (CLEAR) A 04/27/24 11:10 Urine pH 8.0 (5-7) A 04/27/24 11:10 Ur Specific [place]ery 1.019 (1.005-1.030) 04/27/24 11:10 Urine Protein Negative (Negative) 04/27/24 11:10 Urine Glucose (UA) Negative (Normal) 04/27/24 11:10 Urine Ketones Negative (Negative) 04/27/24 11:10 Urine Blood Negative (Negative) 04/27/24 11:10 Urine Nitrate Negative (Negative) 04/27/24 11:10 Urine Bilirubin Negative (Negative) 04/27/24 11:10 Urine Urobilinogen 0.2 mg/dL (Negative) 04/27/24 11:10 Ur Leukocyte Esterase Negative (Negative) 04/27/24 11:10 Urine RBC 0-2 /hpf (0-2) 04/27/24 11:10 Urine WBC 6-10 /hpf (0-5) 04/27/24 11:10 Ur Squamous Epith Cells 11-20 /hpf (0-5) H 04/27/24 11:10 Amorphous Sediment Not Reportable 04/27/24 11:10 Urine Bacteria 2+ /hpf (NONE) H 04/27/24 11:10 Hyaline Casts 1.65 /lpf 04/27/24 11:10 Blood Type O Negative 04/27/24 11:20 Rho(D) Type Rh negative 04/27/24 11:20 Antibody Screen Negative 04/27/24 11:20 Vitals Last Vital Signs Temp 98.0 F 04/28/24 05:00 Pulse 89 04/28/24 09:38 Resp 17 04/28/24 09:38 BP 112/72 04/28/24 09:38 Pulse Ox 96 04/28/24 09:38 O2 Del Method Room Air 04/28/24 09:38 O2 Flow Rate 0.5 04/28/24 05:00 Results Labs OB ([facility]): Blood Type O Negative 04/27/24 Antibody Screen Negative 04/27/24 Hct 42.2 % (36-47) 04/27/24 Hgb 14.50 g/dL (12.4-14.8) 04/27/24 Rho(D) Type Rh negative 04/27/24 Plt Count 355 10^3/cmm (157-399) 04/27/24 TSH 1.31 uIU/mL (0.27-4.20) 10/30/23 Free T4 0.99 ng/dL (0.82-1.77) 10/30/23 Hemoglobin A1c 5.8 % (4.0-6.0) 10/30/23 HCG, Qual Negative (Negative) 02/19/24 Urine Opiates Screen Negative ng/mL (Negative) 11/01/22 Ur Barbiturates Screen Negative ng/mL (Negative) 11/01/22 Ur Phencyclidine Scrn Negative ng/mL (Negative) 11/01/22 Ur Amphetamines Screen Negative ng/mL (Negative) 11/01/22 U Benzodiazepines Scrn Negative ng/mL (Negative) 11/01/22 Urine Cocaine Screen Negative ng/mL (Negative) 11/01/22 U Marijuana (THC) Screen Negative ng/mL (Negative) 11/01/22 Micro Urine Specimen 04/27/24 Free Testosterone 2.6 pg/mL (0.2-5.0) 10/30/23 Prolactin 23.56 ng/mL (4.8-23.3) H 11/01/22 Discharge Plan Discharge Patient Disposition: Home Condition: Stable Prescriptions: New hydrocodone-acetaminophen 5-325 mg tablet 1 tab PO Q4H PRN (Reason: pain) Qty: 20 0RF acetaminophen 325 mg capsule 325 mg PO Q4H PRN (Reason: Postoperative fever or pain) Qty: 60 0RF Continued lorazepam 0.5 mg tablet 0.5 mg PO DAILY PRN (Reason: Anxiety) ondansetron 4 mg tablet,disintegrating 8 mg PO Q6H PRN (Reason: nausea and vomiting) metformin 500 mg tablet extended release 24 hr 1,000 mg PO BID Qty: 360 1RF bupropion HCl [Wellbutrin SR] 150 mg tablet sustained-release 12 hr 150 mg PO DAILY drospirenone-ethinyl estradiol [WILEY (28)] 3-0.02 mg tablet 1 tab PO DAILY Qty: 28 3RF hydrocodone-acetaminophen 5-325 mg tablet 1 tab PO Q6H PRN (Reason: pain) Qty: 15 0RF Discharge Orders: Discharge Order (Routine); Ordered 04/27/24 Ordered By: Dada Ortega Referrals: Dada Ortega MD [Physician] - 05/29/24 9:30 am Ly Schulte APN, WHNP [Nurse Practitioner] - 05/13/24 10:00 am Discharge Diet: Usual diet Discharge Activity: Limit activity as instructed Patient Instructions: Laparoscopy, Endometriosis (GEN), Acute Wound Care (DC), Post Anesthesia Care Activity Restrictions/Additional Instructions: 1. Please call [facility] on next working day to make your post-operative appointment in 2 weeks. 2. Please stay home until you come back to the clinic on first post-hospatilization check up. 3. Please follow instructions on your medications CAREFULLY. 4. If you have abdominal incision, do not cover it unless dressing is necessary because of drainage. OK to shower, but avoid bath. Leave steri-strips until they fall off. If they are still on one week after surgery, you may remove them. 5. If you had vaginal surgery or vaginal repair, Dr. Ortega may instruct you to take SITZ bath. 6. Yellow, blood tinged odorous vaginal discharge is usually normal after hysterectomy or vaginal surgeries. 7. No SEXUAL INTERCOURSE, tampons, or douches until you are completely released from the post-operative care. 8. Avoid constipation by eating right and maybe using some Metamucil or Milk of Magnesia. 9. All prescription refills are given during the working hours. Please do no wait till it runs out. Call the clinic at [phone] before your medication runs out. The clinic will get in touch with your doctor to prescribe medications if necessary. 10. Please remain within 40 mile radius from our hospital because emergencies do happen now and then during the post-operative period. 11. If you have stairs at home, take one step at a time slowly and minimize the number of trips. It helps to stay in one floor for the next few days. No lifting except what you can lift by one hand until you are released from the post-operative care. 12. Driving is discouraged until you are well healed. It may be 3-4 weeks before you feel strong enough to drive. You should be able to turn and look through the rear window without pain and you should be able to push the brake pedal very hard without pain before you drive. No fast rules, but SAFETY should be your primary concern. DO NOT drive if you are on sedating medications such as narcotics. 13. Call the clinic (during working hours) to make urgent appointment or go to the Emergency room, if any of the following occurs: i. Vaginal bleeding becomes heavy, more than a period. ii. Incision becomes red and sore, or drains pus. iii. Your TEMPERATURE is over 100.4F or you have chill. iv. IV site becomes red and swollen (a little ``knot?? is usually OK) v. Persistent nausea and vomiting vi. Persistent constipation or diarrhea vii. Rash or allergic reaction to medications. Discharge Attestations BISQUE TILE BURNER Time Spent in Discharge Care*: greater than 30 min Coding Level of Care Code Acute Code for Chg Fwd
== END 2024-04-28 12:00 | disposition home or self-care (01) ==
LOC: OBGYN 17:22
PROVIDERS: Admitting Provider Obstetrics & Gynecology; PCP Electrodiagnostic Medicine; Visit Provider Obstetrics & Gynecology
PROC: (CPT 49320; principal; 2024-04-27 12:30)
DX: E28.2 Polycystic ovarian syndrome (principal); N83.8 Other noninflammatory disorders of ovary, fallopian tube and broad ligament; Z79.899 Other long term (current) drug therapy; Z88.5 Allergy status to narcotic agent; Z88.0 Allergy status to penicillin; Z79.84 Long term (current) use of oral hypoglycemic drugs; I10 Essential (primary) hypertension
CPT/HCPCS: 58662; 49322; 80053; 81001; 85025; 86850; 86900; 87086; 88112; 88305; A4216; G0378; J1100; J1171; J1200; J2250; J2405; J2704; J3010; J3370; J3490; J7030; J7050

== ENCOUNTER → 2024-05-13 10:31 | Outpatient (BNVA) | payer OTHER, SELFPAY | PROVIDERS: PCP Electrodiagnostic Medicine; Visit Provider Nurse Practitioner Women's Health | DX: R30.0 Dysuria (principal); Z48.816 Encounter for surgical aftercare following surgery on the genitourinary system | CPT/HCPCS: 84315; 87086 ==

== ENCOUNTER → 2024-06-29 08:46 | Outpatient (BNVA) | payer OTHER, SELFPAY | PROVIDERS: PCP Electrodiagnostic Medicine; Visit Provider Nurse Practitioner Women's Health | DX: E28.2 Polycystic ovarian syndrome (principal); N83.01 Follicular cyst of right ovary; N83.02 Follicular cyst of left ovary | CPT/HCPCS: 76830 ==

== ENCOUNTER 2024-10-30 12:58 | Emergency (ER) | payer OTHER, SELFPAY ==
[2024-10-30 13:01] VITALS: PULSE 96; RESP 16; TEMP 36.8; O2SAT 98; BMI 37.2
--- OUTSIDE RECORDS SUMMARY | 2024-10-30 13:04 | XMS_ITS | Clinical Summary ---
Author Organization [facility] Address [address] [place] [address] Phone Care Team Providers Care Quality Control Lab Tech Name Role Phone Unavailable Primary Care Provider Unavailabl e Social History Tobacco Use Types Packs/Day Years Used Date Smoking Tobacco: Never Assessed Adolescent Education Answer Date Record ed Getting School Help Needed Not on file 10/12 Comments Unknown Sex and Gender Information Value Date Recorded Sex Assigned at Female 10/10/2022 3:36 AM CDT Legal Sex Female 3:36 AM CDT Gender Identity Female 10/10/2022 3:36 AM CDT Sexual Orientation Bisexual 10/10/2022 3: 36 AM CDT Plan of Treatment Health Maintenance Due Date Last Done Comments CHLAMYDIA SCREENING (ANNUAL) 11-24 YEARS 05/11/2014 HPV VACCINES (1 - 3-dose series) 05/11/2018 DTAP/TDAP/TD VACCINES (1 - Tdap) 05/11/2022 HEPATITIS B VACCINES (1 of 3 - 19+ 3-dose series) 05/2022 CERVICAL CANCER SCREENING 05/11/2024 HPV/Cotest (21-29) 05/11/2024 PAP SMEAR 05/11/2024 INFLUENZA VACCINE (#1) 2024 Insurance WEB TPA LIA [employer] [id number]
--- NOTE | 2024-10-30 13:14 | ED_ITS ---
HPI - Abdominal Pain 2 General: Chief Complaint: Abdominal Pain Stated Complaint: lower ab, hip and back pain Time Seen by Provider: 10/30/24 13:00 History of Present Illness: 19-year-old female who presents emergenc y room complaining of lower abdominal pain hip and back pain. It is worse with ambulation. She does have a history of kidney stones in the past. Said going on for about the last 3 days she describes it as a sharp throbbing pain. Associated Symptoms: Denies chills, dysuria and fever(s) Related Data Date of Last Menstrual Period: 10/16/24 Home Medications ?Medication ?Instructions ?Recorded ?Confirmed bupropion HCl 150 mg tablet,12 hr 150 mg PO DAILY 01/0907/02/24 sustained-release (Wellbutrin SR) Previous Rx's ?Medication ?Instructions ?Recorded drospirenone 3 mg-ethinyl 1 tab PO DAILY #28 tabs 06/09 07/03 estradiol 0.02 mg tablet (WILEY (28)) elagolix 150 mg tablet (Orilissa) 150 mg PO DAILY endo metriosis #90 06/22/24 tabs ibuprofen 800 mg tablet 800 mg PO TID dysmeorrhea #9 0 tabs 08/17/24 promethazine 25 mg tablet 25 mg PO Q6H PRN nausea and 10/30/24 vomiting #10 tabs Allergies Allergy/AdvReac Type Severity Reaction Status Date / Time amoxicillin Allergy hives Verified 10/30/24 13:06 ciprofloxacin Allergy RASH Verified 10/30/24 13:06 ketorolac (From Toradol) Allergy ALGY-Rash Verified 10/30/24 13:06 vancomycin Allergy ALGY-Rash Verified 10/30/24 13:06 Review of Systems 2 Const: Denies: fever(s) or chills Card: Denies: chest pain Resp: Denies: dyspnea GI: Denies: abdominal pain : Denies: dysuria, urinary frequency or urinary urgency Musc: Denies: neck pain or back pain Skin/Breast: Denies: rash PFSH ED 2 PFSH: Medical History Endometriosis determined by laparoscopy Noted in the posterior cul-de-sac. Anxiety and depression Right ovarian cyst Insulin resistance PCOS (polycystic ovarian syndrome) Functional neurological symptom disorder with attacks or seizures Hypertension Surgical History Hx of laparoscopy (~04/27/24) Diagnostic laparoscopy Right paratubal cyst drainage Endometriosis lesion fulguration of the cul-de-sac. Performed by Dr. Ortega at [facility]. History of tonsillectomy Family History Grandmother Cancer pancreatic cancer Ovarian cancer Denies family history of Colon cancer Prostate cancer Diabetes Heart disease Hyperlipidemia Breast cancer Hypertension Uterine cancer Thyroid disease Stroke Social History Smoking and tobacco/nicotine status: current every day tobacco/nicotine user Second hand smoke exposure: No Female Reproductive History: Date of last menstrual period: 10/16/24 Physical Exam 2 Const: GENERAL APPEARANCE: cooperative ORIENTATION/CONSCIOUSNESS: Yes awake, Yes oriented to person, Yes oriented to place and Yes oriented to time HENMT: COMMON NORMALS: normocephalic, atraumatic and hearing grossly normal bilaterally HEAD & SCALP: normocephalic and atraumatic Resp: COMMON NORMALS: normal respiratory effort, No retractions, No use of accessory muscles and clear to auscultation bilaterally AUSCULTATION: clear to auscultation bilaterally Cardio: COMMON NORMALS: regular rate, regular rhythm and No murmurs present (Cardio) RATE: regular rate RHYTHM: regular rhythm GI: COMMON NORMALS: Soft to palpation and No hepatosplenomegaly present A USCULTATION: Yes normoactive bowel sounds PALPATION: Yes Soft to palpation, No Tenderness to palpation present (GI), No Guarding due to palpation present (GI) and Yes No hepatosplenomegaly present Extremity: COMMON NORMALS: normal to inspection, capillary refill normal, no clubbing, cyanosis or edema, no calf tenderness and no pedal edema Neuro: SENSORIUM/ORIENTATION: Yes oriented to person, Yes oriented to place and Yes oriented to time Skin: COMMON NORMALS: no rashes or lesions noted GENERAL SKIN EXAM: no rashes or lesions noted Course 2 Vital Signs: Vital signs: Vital Signs Temperature 98.2 F 10/30/24 13:01 Pulse Rate 96 10/30/24 13:01 Respiratory Rate 16 10/30/24 13:01 Pulse Oximetry 98 10/30/24 13:01 Oxygen Delivery Me thod Room Air 10/30/24 13:01 MDM - Abdominal Pain Medical Decision Making No nephrolithiasis white count normal. She does have some mesenteric lymph nodes suspect that is the cause of her pain. Promethazine Tylenol ibuprofen as needed clear liquid diet 24 to 48 hours and advance as tolerated Lab Data 10/30/24 14:03 10/30/24 14:03 Labs/Radiology: Radiology Impressions Abdomen/Pelvis CT 10/30/24 14:23 IMPRESSION: 1. Small 2-3 mm nonobstructing stone lower pole right kidney. Small 2 mm and additional punctate nonobstructing renal calculus lower pole left kidney. No findings of ureteral calculus or obstructive uropathy or perinephric stranding. No urinary bladder calculus is seen. 2. A few nonspecific small lymph nodes within the mesentery mid to right mid to lower abdomen and consider mesenteric adenitis. No CT findings of appendicitis. 3. [id number] stool content in the colon, more prominent proximal half of the colon. 4. No acute findings otherwise. Laboratory Results WBC 10.02 10^3/uL (3.29-11.43) 10/30/24 14:03 RBC 4.89 10^6/uL (3.85-5.65) 10/30/24 14:03 Hgb 13.90 g/dL (11.27-16.99) 10/30/24 14:03 Hct 42.1 % (36-47) 10/30/24 14:03 MCV 86.1 fl (85-98) 10/30/24 14:03 MCH 28.4 pg (27-33) 10/30/24 14:03 MCHC 33.0 g/dL (30-55) 10/30/24 14:03 RDW 12.5 % (12.1-15.1) 10/30/24 14:03 Plt Count 302 10^3/cmm (157-399) 10/30/24 14:03 MPV 10.9 fL (7.4-10.4) H 10/30/24 14:03 Neut % (Auto) 48.8 % 10/30/24 14:03 Lymph % (Auto) 42.0 % 10/30/24 14:03 Esmeralda % (Auto) 5.3 % 10/30/24 14:03 Eos % (Auto) 2.7 % 10/30/24 14:03 Baso % (Auto) 0.8 % 10/30/24 14:03 Neut # (Auto) 4.89 10^3/uL (1.8-7.7) 10/30/24 14:03 Lymph # (Auto) 4.2 10^3/uL (0.8-4.8) 10/30/24 14:03 Esmeralda # (Auto) 0.5 10^3/uL (0.2-0.9) 10/30/24 14:03 Eos # (Auto) 0.3 10^3/uL (0.0-0.8) 10/30/24 14:03 Baso # (Auto) 0.1 10^3/uL (0.0-0.1) 10/30/24 14:03 Nucleated RBC % (auto) 0 % 10/30/24 14:03 Nucleated RBCs # 0.0 /100WBC 10/30/24 14:03 Sodium 139 mmol/L (136-145) 10/30/24 14:03 Potassium 3.8 mmol/L (3.5-5.1) 10/30/24 14:03 Chloride 102 mmol/L (98-107) 10/30/24 14:03 Carbon Dioxide 25 mmol/L (22-29) 10/30/24 14:03 Anion Gap 15.8 (5-19) 10/30/24 14:03 BUN 7 mg/dL (6-20) 10/30/24 14:03 Creatinine 0.7 mg/dL (0.5-0.9) 10/30/24 14:03 GFR Calculation 105.6 mL/min (90-130) 10/30/24 14:03 Glucose 93 mg/dL (65-115) 10/30/24 14:03 Calculated Osmolality 286 mOsm/kg (285-295) 10/30/24 14:03 Calcium 9.8 mg/dL (8.5-10.5) 10/30/24 14:03 Total Bilirubin 0.3 mg/dL (0.15-1.2) 10/30/24 14:03 AST 17 U/L (0-32) 10/30/24 14:03 ALT 23 U/L (0-33) 10/30/24 14:03 Alkaline Phosphatase 84 U/L (35-105) 10/30/24 14:03 Total Protein 7.2 g/dL (6.6-8.7) 10/30/24 14:03 Albumin 4.5 g/dL (3.5-5.2) 10/30/24 14:03 Globulin 2.7 g/dL (1.3-4.6) 10/30/24 14:03 HCG, Qual Negative (Negative) 10/30/24 14:03 Urine Color Yellow (Yellow) 10/30/24 13:37 Urine Appearance Clear (CLEAR) 10/30/24 13:37 Urine pH 7.0 (5-7) 10/30/24 13:37 Ur Specific [place] 1.034 (1.005-1.030) H 10/30/24 13:37 Urine Protein Trace (Negative) A 10/30/24 13:37 Urine Glucose (UA) Negative (Normal) 10/30/24 13:37 Urine Ketones Trace (Negative) 10/30/24 13:37 Urine Blood Negative (Negative) 10/30/24 13:37 Urine Nitrate Negative (Negative) 10/30/24 13:37 Urine Bilirubin Negative (Negative) 10/30/24 13:37 Urine Urobilinogen 1.0 mg/dL (Negative) 10/30/24 13:37 Ur Leukocyte Esterase Trace (Negative) A 10/30/24 13:37 Urine RBC 0-2 /hpf (0-2) 10/30/24 13:37 Urine WBC 0-5 /hpf (0-5) 10/30/24 13:37 Ur Squamous Epith Cells 6-10 /hpf (0-5) 10/30/24 13:37 Amorphous Sediment Not Reportable 10/30/24 13:37 Urine Bacteria Trace /hpf (NONE) 10/30/24 13:37 Hyaline Casts 0.40 /lpf 10/30/24 13:37 All radiology interpretation(s) finalized by discharge Discharge Plan Discharge Patient Disposition: Home Clinical Impression: Abdominal pain, Acute mesenteric lymphadenitis, Constipation Condition: Stable Prescriptions: New promethazine 25 mg tablet 25 mg PO Q6H PRN (Reason: nausea and vomiting) Qty: 10 0RF No Action bupropion HCl [Wellbutrin SR] 150 mg tablet sustained-release 12 hr 150 mg PO DAILY Orilissa 150 mg tablet 150 mg PO DAILY Qty: 90 0RF drospirenone-ethinyl estradiol [WILEY (28)] 3-0.02 mg tablet 1 tab PO DAILY Qty: 28 3RF ibuprofen 800 mg tablet 800 mg PO TID Qty: 90 4RF Discharge Orders: Discharge ED (Routine); Ordered 10/30/24 Ordered By: Junior Thorne Discharge Diet: Clear Liquid Patient Instructions: Abdominal Pain (ED), Opioid Safety, Pain Management, Patient Portal & Edd Instructions Activity Restrictions/Additional Instructions: [facility] It is very important that you follow up as instructed or that you return to the Emergency Department should you have concerns or if your condition changes or worsens in any way. You were seen in the emergency room with complaints of abdominal pain your white count was normal CT showed significant amount of retained stool in the proximal colon additionally there was mesenteric lymph nodes that were mildly inflamed. There is a stone on your CT but it is in the kidney is not in the ureter. Typically stones in the kidney do not cause pain until it begins to move down the ureter towards the bladder. Print Language: Swiss Coding Level of Care Code ED Telehealth Nurse Educator for Moshe Jesus
[2024-10-30 13:47] LABS: Glucose Urine UA Negative (Normal); Nitrate Urine Negative (Negative)
[2024-10-30 13:52] LABS: Add Urine Microscopic? YES
[2024-10-30 14:14] LABS: Specific Gravity, Urine 1.034 (1.005-1.030)
[2024-10-30 14:16] LABS: Hematocrit 42.1 % (36-47); Hemoglobin 13.90 g/dL (11.27-16.99); Mean Corpuscular HGB Conc 33.0 g/dL (30-55); Mean Corpuscular Hemoglobin 28.4 pg (27-33); Mean Corpuscular Volume 86.1 fl (85-98); Nucleated Red Blood Cells % 0 %; Platelet Count 302 10^3/cmm (157-399); Red Blood Count 4.89 10^6/uL (3.85-5.65); White Blood Count 10.02 10^3/uL (3.29-11.43)
--- NOTE | 2024-10-30 14:23 | CTR_ITS ---
PROCEDURE INFORMATION: Exam: CT Abdomen And Pelvis Without Contrast Exam date and time: 10/30/2024 3:32 PM Age: 19 years old Clinical indication: Abdominal pain TECHNIQUE: Imaging protocol: Computed tomography of the abdomen and pelvis without contrast. Radiation optimization: All CT scans at this facility use at least one of these dose optimization techniques: automated exposure control; mA and/or kV adjustment per patient size (includes targeted exams where dose is matched to clinical indication); or iterative reconstruction. COMPARISON: CT kidney stone [id number] 02/23/2023 10:25 AM RADIATION DOSE METRICS: Total DLP (mGy-cm): 805.04 FINDINGS: Lungs: Visualized lung bases appear clear. Liver: Normal. No mass. Gallbladder and biliary ducts: Normal. No calcified stones. No ductal dilation. Pancreas: Normal. No ductal dilation. Spleen: Normal. No splenomegaly. Adrenal glands: Normal. No mass. Kidneys and ureters: Approximately 2-3 mm nonobstructing stone lower pole right kidney. Approximately 2 mm nonobstructing stone lower pole left kidney with additional punctate nonobstructing stone lower pole left kidney as well. No ureteral calculus or obstructive uropathy or perinephric stranding is seen. Stomach and bowel: No bowel obstruction. Gas and stool within the colon, with incomplete distension of a portion of the distal left colon and a portion of the sigmoid colon. [id number] stool content. Bowel appears unremarkable otherwise for noncontrast exam. Appendix: The appendix is visualized. No evidence of appendicitis. Intraperitoneal space: No free fluid or ascites or fluid collection. No free air. Vasculature: Unremarkable. No abdominal aortic aneurysm. Lymph nodes: A few nonspecific lymph nodes noted within the mesentery within the mid to right mid to lower abdomen. No significant periaortic or retroperitoneal lymphadenopathy. A few small inguinal lymph nodes also noted, nonspecific. Urinary bladder: Urinary bladder appears unremarkable for noncontrast exam and no calculus is seen within the urinary bladder. Reproductive: Unremarkable as visualized. Interval resolution of previous right adnexal cyst from 2022 exam. Bones/joints: Bone windows show no acute osseous abnormality. Tiny bone island left femoral head. Soft tissues: Unremarkable. CT/CT abdomen pelvis wo con [id number] IMPRESSION: 1. Small 2-3 mm nonobstructing stone lower pole right kidney. Small 2 mm and additional punctate nonobstructing renal calculus lower pole left kidney. No findings of ureteral calculus or obstructive uropathy or perinephric stranding. No urinary bladder calculus is seen. 2. A few nonspecific small lymph nodes within the mesentery mid to right mid to lower abdomen and consider mesenteric adenitis. No CT findings of appendicitis. 3. [id number] stool content in the colon, more prominent proximal half of the colon. 4. No acute findings otherwise.
[2024-10-30 14:33] LABS: Alanine Aminotransferase 23 U/L (0-33); Albumin Level 4.5 g/dL (3.5-5.2); Alkaline Phosphatase 84 U/L (35-105); Anion Gap 15.8 (5-19); Aspartate Amino Transferase 17 U/L (0-32); Blood Urea Nitrogen 7 mg/dL (6-20); Calcium 9.8 mg/dL (8.5-10.5); Carbon Dioxide 25 mmol/L (22-29); Chloride 102 mmol/L (98-107); Creatinine Clr Calc Pharmacy 139.5661; Globulin 2.7 g/dL (1.3-4.6); Glucose 93 mg/dL (65-115); Osmolality Calculated 286 mOsm/kg (285-295); Potassium 3.8 mmol/L (3.5-5.1); Sodium 139 mmol/L (136-145); Total Protein 7.2 g/dL (6.6-8.7)
[2024-10-30 14:37] LABS: HCG, Serum Qual Negative (Negative)
--- NOTE | 2024-10-30 18:16 | PC.NURSE ---
Patient took herself off of monitor.
== END 2024-10-30 18:22 | disposition home or self-care (01) ==
PROVIDERS: Emergency Provider Family Medicine
DX: R10.9 Unspecified abdominal pain (principal); I88.0 Nonspecific mesenteric lymphadenitis; K59.00 Constipation, unspecified; I10 Essential (primary) hypertension
CPT/HCPCS: 36415; 74176; 80053; 81001; 84703; 85025; 99284; J9999

== ENCOUNTER 2024-11-03 08:50 | Outpatient (RCR) | payer OTHER, SELFPAY | END 2024-11-08 23:59 | disposition home or self-care (01) | LOC: SPT 08:50 | PROVIDERS: Visit Provider Obstetrics & Gynecology | DX: K59.02 Outlet dysfunction constipation (principal); R10.2 Pelvic and perineal pain; G89.29 Other chronic pain | CPT/HCPCS: 97161 ==

== ENCOUNTER 2024-11-09 05:00 | Outpatient (RCR) | payer OTHER, SELFPAY | END 2024-12-08 23:59 | disposition home or self-care (01) | LOC: SPT 05:00 | PROVIDERS: Visit Provider Obstetrics & Gynecology | DX: K59.02 Outlet dysfunction constipation (principal); R10.2 Pelvic and perineal pain; G89.29 Other chronic pain | CPT/HCPCS: 20560; 97110; 97530 ==

== ENCOUNTER 2024-12-09 05:00 | Outpatient (RCR) | payer OTHER, SELFPAY | END 2025-01-08 23:59 | disposition home or self-care (01) | LOC: SPT 05:00 | PROVIDERS: Visit Provider Obstetrics & Gynecology | DX: K59.02 Outlet dysfunction constipation (principal); R10.20 Pelvic and perineal pain unspecified side; G89.29 Other chronic pain | CPT/HCPCS: 97110 ==

== ENCOUNTER 2025-01-09 05:00 | Outpatient (RCR) | payer OTHER, SELFPAY | END 2025-02-07 23:59 | disposition home or self-care (01) | LOC: SPT 05:00 | PROVIDERS: Visit Provider Obstetrics & Gynecology | DX: K59.02 Outlet dysfunction constipation (principal); R10.20 Pelvic and perineal pain unspecified side; G89.29 Other chronic pain | CPT/HCPCS: 97110 ==

== ENCOUNTER 2025-02-08 05:00 | Outpatient (RCR) | payer OTHER, SELFPAY | END 2025-03-10 23:59 | disposition home or self-care (01) | LOC: SPT 05:00 | PROVIDERS: Visit Provider Obstetrics & Gynecology | DX: K59.02 Outlet dysfunction constipation (principal); R10.20 Pelvic and perineal pain unspecified side; G89.29 Other chronic pain | CPT/HCPCS: 97110 ==